=== PATIENT | male | born 1970 | race Two or more races ===

== ENCOUNTER 2021-03-05 16:02 | Inpatient (IN) | payer OTHER ==
[~2021-03-05] VITALS: Ht 190.5 cm; Wt 57.8 kg
[2021-03-05 18:25] LABS: Hematocrit 16.4 % (41.0-53.0); Mean Corpuscular Hgb Conc. 32.8 g/dL (32.0-36.0); Mean Corpuscular Volume 103.6 fL (80.0-100.0); Red Blood Cells 1.59 10^6/uL (4.5-5.90); Red Cell Distribution Width 18.3 % (11.8-14.3)
[2021-03-05 18:28] LABS: White Blood Cell 1.9 10^3/uL (4.4-10.8)
[2021-03-05 18:32] LABS: Anion Gap 9 (5-15); Blood Urea Nitrogen 24 mg/dL (7-18); Calcium 8.5 mg/dL (8.5-10.1); Carbon Dioxide 24 mmol/L (21-32); Chloride 106 mmol/L (98-107); Glucose 96 mg/dL (74-106); Hemoglobin 5.4 g/dL (13.5-17.5); Potassium 4.3 mmol/L (3.5-5.1); Sodium 139 mmol/L (136-145)
[2021-03-05 18:33] LABS: Band Neutrophils % (manual) 0; Basophils % (manual) 0 (0.0-2.0); Blast Cells 0; Eosinophils % (manual) 0 (0-7); Metamyelocytes % 0; Myelocytes % 0; Promyelocytes % 0; Reactive Lymphocytes 0
[2021-03-05 18:42] LABS: Alanine Aminotransferase < 6 U/L (16-61); Alkaline Phosphatase 45 U/L (45-117); Aspartate Aminotransferase 4 U/L (15-37); BUN/Creatinine Ratio 28.9; Bilirubin, Total 0.5 mg/dL (0.2-1.0); GFR African American 126 mL/min; GFR Non-African American 104 mL/min; Total Protein 6.5 g/dL (6.4-8.2)
[2021-03-05 19:09] LABS: Lymphocytes % (manual) 64 (10.0-50.0); Monocytes % (manual) 1 (0-12)
[2021-03-05 22:13] VITALS: BP 111/86
[2021-03-05] MEDS ORDERED: FILGRASTIM (TBO) 300 MCG/0.5 ML SYRG SC ONE (22:15)
[2021-03-05] MEDS ORDERED: NITROGLYCERIN 0.4 MG SL TAB SL PRN (22:15)
[2021-03-05] MEDS ORDERED: ACETAMINOPHEN 325 MG TAB PO PRN (22:15)
[2021-03-05] MEDS ORDERED: MORPHINE SULFATE INJECTION 2 MG/ML SYRG IV PRN (22:15)
[2021-03-05] MEDS ORDERED: TEMAZEPAM 15 MG CAP PO PRN (22:15)
[2021-03-05 22:28] VITALS: BP 117/84
[2021-03-06] VITALS (10 sets, daily range): BP systolic 101–131; BP diastolic 69–95
[2021-03-06] MEDS ORDERED: IODIXANOL 320MG/ML 100ML BTL IV ONE (00:32)
[2021-03-06 01:14] LABS: Lactic Acid w/Reflex 0.7 mmol/L (0.4-2.0)
[2021-03-06] MEDS ORDERED: ASCORBIC ACID 500 MG TAB PO SCH (10:00)
[2021-03-06] MEDS ORDERED: ZINC SULFATE 220mg CAP or TAB PO SCH (10:00)
[2021-03-06 10:22] LABS: Red Blood Cells 2.73 10^6/uL (4.5-5.90); White Blood Cell 2.7 10^3/uL (4.4-10.8)
[2021-03-06 10:25] LABS: Hemoglobin 8.9 g/dL (13.5-17.5); Mean Corpuscular Hemoglobin 32.5 pg (28.0-32.0); Mean Corpuscular Hgb Conc. 34.2 g/dL (32.0-36.0); Mean Corpuscular Volume 95.1 fL (80.0-100.0); Red Cell Distribution Width 17.8 % (11.8-14.3)
[2021-03-06 10:34] LABS: Basophils % (manual) 0 (0.0-2.0); Blast Cells 0; Metamyelocytes % 0; Myelocytes % 0; Promyelocytes % 0; Reactive Lymphocytes 0
[2021-03-06] MEDS ORDERED: HYDR-4833 PO (11:01)
[2021-03-06] MEDS ORDERED: METH2.5T PO (11:01)
[2021-03-06] MEDS ORDERED: AMLO-489 PO (11:01)
[2021-03-06] MEDS ORDERED: CLON0.1T PO (11:01)
[2021-03-06 11:49] LABS: Band Neutrophils % (manual) 1; Eosinophils % (manual) 3 (0-7); Lymphocytes % (manual) 20 (10.0-50.0); Monocytes % (manual) 4 (0-12)
[2021-03-06] MEDS: HYDROcodone-ACET 5/325MG TAB PO PRN ×2 (12:39→17:01)
[2021-03-06 15:29] LABS: Chloride 106 mmol/L (98-107); Potassium 3.8 mmol/L (3.5-5.1); Sodium 139 mmol/L (136-145)
[2021-03-06 15:31] LABS: Anion Gap 9 (5-15); Carbon Dioxide 24 mmol/L (21-32)
[2021-03-06 15:32] LABS: Alkaline Phosphatase 38 U/L (45-117); Aspartate Aminotransferase 5 U/L (15-37); BUN/Creatinine Ratio 36.8; Blood Urea Nitrogen 21 mg/dL (7-18); GFR African American 194 mL/min; GFR Non-African American 160 mL/min; Glucose 92 mg/dL (74-106)
[2021-03-06 15:33] LABS: Albumin 2.4 g/dL (3.4-5.0); Bilirubin, Total 1.8 mg/dL (0.2-1.0); Total Protein 5.5 g/dL (6.4-8.2)
[2021-03-06 15:34] LABS: Alanine Aminotransferase < 6 U/L (16-61)
[2021-03-06] MEDS: DexAMETHasone SOD PHOS 10MG/1ML VIAL INJ IV SCH ×2 (17:00→23:30)
[2021-03-06] MEDS ORDERED: Ensure Enlive Strawberry 8oz Bottle PO SCH (18:00)
[2021-03-06 18:40] LABS: Urine Bacteria NONE SEEN /hpf (None Seen); Urine Blood 3+ /uL (Negative); Urine Budding Yeast OCCASIONAL /hpf (None Seen); Urine Specific Gravity 1.044 (1.001-1.035); Urine WBC 112 /hpf (0 - 3)
[2021-03-06] MEDS: Glucerna Carbsteady SHAKE Vanilla 8oz PO SCH (18:54)
[2021-03-06] MEDS: MORPHINE SULFATE INJECTION 2 MG/ML SYRG IV PRN (19:55)
[2021-03-07 05:00] VITALS: BP 128/91
[2021-03-07] MEDS: DexAMETHasone SOD PHOS 10MG/1ML VIAL INJ IV SCH ×3 (06:10→17:18)
[2021-03-07] MEDS: Glucerna Carbsteady SHAKE Vanilla 8oz PO SCH ×3 (08:16→17:47)
[2021-03-07] MEDS: MORPHINE SULFATE INJECTION 2 MG/ML SYRG IV PRN ×3 (08:22→20:11)
[2021-03-07 08:30] VITALS: BP 118/85
[2021-03-07] MEDS: cefTRIAXone 1GM/50ML D5W 50 ML IV SCH (09:32)
[2021-03-07 10:47] LABS: Mean Corpuscular Hgb Conc. 34.3 g/dL (32.0-36.0)
[2021-03-07 10:51] LABS: Hematocrit 28.9 % (41.0-53.0); Hemoglobin 9.9 g/dL (13.5-17.5); Mean Corpuscular Hemoglobin 32.7 pg (28.0-32.0); Mean Corpuscular Volume 95.2 fL (80.0-100.0); Red Blood Cells 3.04 10^6/uL (4.5-5.90); Red Cell Distribution Width 17.5 % (11.8-14.3); White Blood Cell 5.6 10^3/uL (4.4-10.8)
[2021-03-07 10:54] LABS: Basophils % (manual) 0 (0.0-2.0); Blast Cells 0; Eosinophils % (manual) 0 (0-7); Metamyelocytes % 0; Myelocytes % 0; Promyelocytes % 0; Reactive Lymphocytes 0
[2021-03-07 11:35] LABS: Band Neutrophils % (manual) 8; Lymphocytes % (manual) 9 (10.0-50.0); Monocytes % (manual) 3 (0-12)
[2021-03-07 12:37] VITALS: BP 118/91
[2021-03-07 17:00] VITALS: BP 108/75
[2021-03-07 22:10] VITALS: BP 125/95
[2021-03-08] VITALS (9 sets, daily range): BP systolic 106–136; BP diastolic 77–96
[2021-03-08] MEDS: DexAMETHasone SOD PHOS 10MG/1ML VIAL INJ IV SCH ×4 (00:12→17:58)
[2021-03-08 06:11] LABS: Basophils # (auto) 0 10 ^3/uL (0-0.2); Hemoglobin 7.5 g/dL (13.5-17.5); Monocytes # (auto) 0.1 10 ^3/uL (0-1.3); White Blood Cell 3.7 10^3/uL (4.4-10.8)
[2021-03-08 06:16] LABS: Basophils % (auto) 0.1 % (0.0-2.0); Eosinophils # (auto) 0 10 ^3/uL (0-0.8); Hematocrit 22.2 % (41.0-53.0); Lymphocytes # (auto) 0.8 10 ^3/uL (0.4-5.4); Lymphocytes % (auto) 20.8 % (10.0-50.0); Mean Corpuscular Hemoglobin 32.5 pg (28.0-32.0); Mean Corpuscular Hgb Conc. 33.7 g/dL (32.0-36.0); Mean Corpuscular Volume 96.4 fL (80.0-100.0); Monocytes % (auto) 3.7 % (0.0-12.0); Neutrophils # (auto) 2.8 10 ^3/uL (1.6-8.6); Neutrophils % (auto) 75.4 % (37.0-80.0); Nucleated Red Blood Cells % 0.5 %; Red Cell Distribution Width 17.7 % (11.8-14.3)
[2021-03-08] MEDS: Glucerna Carbsteady SHAKE Vanilla 8oz PO SCH ×3 (08:00→17:58)
[2021-03-08] MEDS: cefTRIAXone 1GM/50ML D5W 50 ML IV SCH (09:00)
[2021-03-08] MEDS: MORPHINE SULFATE INJECTION 2 MG/ML SYRG IV PRN ×2 (11:08→21:13)
[2021-03-09 00:03] VITALS: BP 122/85
[2021-03-09] MEDS: DexAMETHasone SOD PHOS 10MG/1ML VIAL INJ IV SCH ×4 (00:20→17:18)
[2021-03-09 05:00] VITALS: BP 121/88
[2021-03-09 05:22] LABS: Hemoglobin 8.4 g/dL (13.5-17.5); White Blood Cell 4.6 10^3/uL (4.4-10.8)
[2021-03-09 05:25] LABS: Hematocrit 24.3 % (41.0-53.0); Mean Corpuscular Hemoglobin 32.9 pg (28.0-32.0); Mean Corpuscular Hgb Conc. 34.6 g/dL (32.0-36.0); Mean Corpuscular Volume 95.1 fL (80.0-100.0); Red Blood Cells 2.56 10^6/uL (4.5-5.90); Red Cell Distribution Width 17.1 % (11.8-14.3)
[2021-03-09 06:13] LABS: Basophils % (manual) 0 (0.0-2.0); Blast Cells 0; Eosinophils % (manual) 0 (0-7); Metamyelocytes % 0; Myelocytes % 0; Promyelocytes % 0; Reactive Lymphocytes 0
[2021-03-09] MEDS: Glucerna Carbsteady SHAKE Vanilla 8oz PO SCH ×3 (07:53→17:18)
[2021-03-09 08:38] LABS: Band Neutrophils % (manual) 1; Lymphocytes % (manual) 22 (10.0-50.0); Monocytes % (manual) 4 (0-12)
[2021-03-09 09:00] VITALS: BP 117/88
[2021-03-09] MEDS: cefTRIAXone 1GM/50ML D5W 50 ML IV SCH (09:18)
[2021-03-09] MEDS: MORPHINE SULFATE INJECTION 2 MG/ML SYRG IV PRN ×2 (10:55→17:46)
[2021-03-09 13:01] VITALS: BP 120/84
[2021-03-09 16:58] VITALS: BP 112/86
[2021-03-09 22:00] VITALS: BP 115/81
[2021-03-10] MEDS: DexAMETHasone SOD PHOS 10MG/1ML VIAL INJ IV SCH ×5 (00:08→23:47)
[2021-03-10] MEDS: MORPHINE SULFATE INJECTION 2 MG/ML SYRG IV PRN ×4 (00:09→22:36)
[2021-03-10 05:00] VITALS: BP 124/84
[2021-03-10 05:43] LABS: Hemoglobin 7.4 g/dL (13.5-17.5); Red Blood Cells 2.24 10^6/uL (4.5-5.90); White Blood Cell 6.3 10^3/uL (4.4-10.8)
[2021-03-10 05:46] LABS: Hematocrit 21.4 % (41.0-53.0); Mean Corpuscular Hemoglobin 32.8 pg (28.0-32.0); Mean Corpuscular Hgb Conc. 34.5 g/dL (32.0-36.0); Mean Corpuscular Volume 95.2 fL (80.0-100.0); Red Cell Distribution Width 18.1 % (11.8-14.3)
[2021-03-10 05:56] LABS: Basophils % (manual) 0 (0.0-2.0); Blast Cells 0; Eosinophils % (manual) 0 (0-7); Promyelocytes % 0; Reactive Lymphocytes 0
[2021-03-10] MEDS: Glucerna Carbsteady SHAKE Vanilla 8oz PO SCH ×3 (07:31→17:09)
[2021-03-10] MEDS: cefTRIAXone 1GM/50ML D5W 50 ML IV SCH (07:45)
[2021-03-10 09:00] VITALS: BP 139/94
[2021-03-10 09:08] LABS: Band Neutrophils % (manual) 7; Lymphocytes % (manual) 37 (10.0-50.0); Metamyelocytes % 6; Monocytes % (manual) 17 (0-12); Myelocytes % 6
[2021-03-10] MEDS: LACTULOSE 20Gm/30ML SOLN PO PRN ×2 (12:33→19:40)
[2021-03-10 13:00] VITALS: BP 117/92
[2021-03-10 17:00] VITALS: BP 149/95
[2021-03-10 21:36] VITALS: BP 126/91
[2021-03-10] MEDS ORDERED: ONDANSETRON HCL 4 MG/2 ML VIAL IV PRN (22:30)
[2021-03-11 05:02] VITALS: BP 140/91
[2021-03-11 05:25] LABS: Hematocrit 27.2 % (41.0-53.0); Hemoglobin 9.1 g/dL (13.5-17.5); Mean Corpuscular Hemoglobin 32.3 pg (28.0-32.0); Mean Corpuscular Hgb Conc. 33.4 g/dL (32.0-36.0); Mean Corpuscular Volume 96.5 fL (80.0-100.0); Red Blood Cells 2.82 10^6/uL (4.5-5.90); White Blood Cell 16.2 10^3/uL (4.4-10.8)
[2021-03-11 06:15] LABS: Basophils % (manual) 0 (0.0-2.0); Blast Cells 0; Eosinophils % (manual) 0 (0-7); Promyelocytes % 0; Reactive Lymphocytes 0
[2021-03-11] MEDS: DexAMETHasone SOD PHOS 10MG/1ML VIAL INJ IV SCH ×2 (06:37→12:21)
[2021-03-11] MEDS: MORPHINE SULFATE INJECTION 2 MG/ML SYRG IV PRN ×3 (06:39→17:59)
[2021-03-11] MEDS: LACTULOSE 20Gm/30ML SOLN PO PRN (06:56)
[2021-03-11 07:36] LABS: Band Neutrophils % (manual) 8; Lymphocytes % (manual) 28 (10.0-50.0); Metamyelocytes % 10; Monocytes % (manual) 22 (0-12); Myelocytes % 4
[2021-03-11] MEDS: Glucerna Carbsteady SHAKE Vanilla 8oz PO SCH ×3 (08:00→18:30)
[2021-03-11 08:58] VITALS: BP 135/100
[2021-03-11] MEDS: cefTRIAXone 1GM/50ML D5W 50 ML IV SCH (09:00)
[2021-03-11 13:00] VITALS: BP 130/95
[2021-03-11] MEDS ORDERED: FLEET ENEMA(ADULT) 135 ML PR ONE (13:00)
[2021-03-11 17:00] VITALS: BP 143/109
[2021-03-11 20:00] VITALS: BP 123/67
[2021-03-11 22:00] VITALS: BP 127/101
[2021-03-11] MEDS: predniSONE 20 MG TAB PO SCH (22:00)
[2021-03-11] MEDS: LACTULOSE 20Gm/30ML SOLN PO SCH (22:00)
[2021-03-12] MEDS: MORPHINE SULFATE INJECTION 2 MG/ML SYRG IV PRN ×3 (03:09→21:41)
[2021-03-12 05:00] VITALS: BP 109/84
[2021-03-12] MEDS: predniSONE 20 MG TAB PO SCH ×3 (06:00→21:35)
[2021-03-12 06:48] LABS: Hematocrit 27.3 % (41.0-53.0); Hemoglobin 9.2 g/dL (13.5-17.5); Mean Corpuscular Hemoglobin 32.3 pg (28.0-32.0); Mean Corpuscular Hgb Conc. 33.8 g/dL (32.0-36.0); Mean Corpuscular Volume 95.4 fL (80.0-100.0); Red Blood Cells 2.86 10^6/uL (4.5-5.90); Red Cell Distribution Width 18.2 % (11.8-14.3); White Blood Cell 13.6 10^3/uL (4.4-10.8)
[2021-03-12 07:01] LABS: Basophils % (manual) 0 (0.0-2.0); Blast Cells 0; Eosinophils % (manual) 0 (0-7); Promyelocytes % 0; Reactive Lymphocytes 0
[2021-03-12] MEDS: Glucerna Carbsteady SHAKE Vanilla 8oz PO SCH ×3 (08:09→18:30)
[2021-03-12 08:58] LABS: Band Neutrophils % (manual) 5; Lymphocytes % (manual) 18 (10.0-50.0); Monocytes % (manual) 24 (0-12)
[2021-03-12 08:59] LABS: Metamyelocytes % 1; Myelocytes % 2
[2021-03-12] MEDS: ASCORBIC ACID 500 MG TAB PO SCH ×2 (11:20→21:35)
[2021-03-12] MEDS: MULTIPLE VITAMINS W/ MINERALS TAB PO SCH ×2 (11:20→21:35)
[2021-03-12 12:54] VITALS: BP 115/81
[2021-03-12] MEDS ORDERED: PANT40TA2 PO (14:55)
[2021-03-12] MEDS ORDERED: PRED20TA2 PO (14:55)
[2021-03-12 17:18] VITALS: BP 135/94
[2021-03-12] MEDS: LACTULOSE 20Gm/30ML SOLN PO SCH (21:34)
[2021-03-12 22:00] VITALS: BP 125/92
[2021-03-13 05:04] VITALS: BP 132/89
[2021-03-13] MEDS: predniSONE 20 MG TAB PO SCH ×3 (05:33→21:16)
[2021-03-13] MEDS: MORPHINE SULFATE INJECTION 2 MG/ML SYRG IV PRN ×3 (05:33→21:15)
[2021-03-13 06:02] LABS: Hemoglobin 7.9 g/dL (13.5-17.5); Mean Corpuscular Hemoglobin 31.4 pg (28.0-32.0); White Blood Cell 12.4 10^3/uL (4.4-10.8)
[2021-03-13 06:06] LABS: Mean Corpuscular Hgb Conc. 32.7 g/dL (32.0-36.0)
[2021-03-13 06:38] LABS: Basophils % (manual) 0 (0.0-2.0); Blast Cells 0; Eosinophils % (manual) 0 (0-7); Promyelocytes % 0; Reactive Lymphocytes 0
[2021-03-13 07:36] LABS: Band Neutrophils % (manual) 9; Lymphocytes % (manual) 16 (10.0-50.0); Metamyelocytes % 5; Monocytes % (manual) 27 (0-12); Myelocytes % 5
[2021-03-13 07:45] VITALS: BP 145/92
[2021-03-13] MEDS: Glucerna Carbsteady SHAKE Vanilla 8oz PO SCH ×3 (08:21→18:18)
[2021-03-13 09:00] VITALS: BP 145/92
[2021-03-13] MEDS: ASCORBIC ACID 500 MG TAB PO SCH ×2 (09:12→21:17)
[2021-03-13] MEDS: PANTOPRAZOLE 40 MG TAB PO SCH (09:12)
[2021-03-13] MEDS: MULTIPLE VITAMINS W/ MINERALS TAB PO SCH ×2 (09:12→21:16)
[2021-03-13 13:00] VITALS: BP 128/98
[2021-03-13 16:13] LABS: Urine Bacteria FEW /hpf (None Seen); Urine Blood 3+ /uL (Negative); Urine Hyaline Cast FEW /lpf (0 - 2); Urine Mucus FEW (None Seen); Urine Specific Gravity 1.023 (1.001-1.035); Urine WBC <1 /hpf (0 - 3)
[2021-03-13 17:00] VITALS: BP 130/88
[2021-03-13] MEDS: LACTULOSE 20Gm/30ML SOLN PO SCH ×2 (21:15→21:33)
[2021-03-13 21:17] VITALS: BP 119/81
[2021-03-14] MEDS: MORPHINE SULFATE INJECTION 2 MG/ML SYRG IV PRN ×3 (03:51→17:23)
[2021-03-14 05:12] VITALS: BP 133/86
[2021-03-14] MEDS: Glucerna Carbsteady SHAKE Vanilla 8oz PO SCH ×3 (08:03→17:46)
[2021-03-14 09:21] VITALS: BP 143/94
[2021-03-14] MEDS: ASCORBIC ACID 500 MG TAB PO SCH (09:31)
[2021-03-14] MEDS: predniSONE 20 MG TAB PO SCH (09:31)
[2021-03-14] MEDS: MULTIPLE VITAMINS W/ MINERALS TAB PO SCH (09:36)
[2021-03-14] MEDS: PANTOPRAZOLE 40 MG TAB PO SCH (09:36)
[2021-03-14 10:44] LABS: Hemoglobin 8.3 g/dL (13.5-17.5)
[2021-03-14 10:46] LABS: Hematocrit 25.5 % (41.0-53.0); Mean Corpuscular Hemoglobin 31.7 pg (28.0-32.0); Mean Corpuscular Hgb Conc. 32.6 g/dL (32.0-36.0); Mean Corpuscular Volume 97.1 fL (80.0-100.0); Red Blood Cells 2.62 10^6/uL (4.5-5.90); Red Cell Distribution Width 18.8 % (11.8-14.3); White Blood Cell 14.3 10^3/uL (4.4-10.8)
[2021-03-14 10:49] LABS: Basophils % (manual) 0 (0.0-2.0); Blast Cells 0; Eosinophils % (manual) 0 (0-7); Metamyelocytes % 0; Promyelocytes % 0; Reactive Lymphocytes 0
[2021-03-14] MEDS ORDERED: PRED20TA2 PO (11:14)
[2021-03-14] MEDS ORDERED: FERROUS SULFATE 325mg EC TAB PO ONE (11:15)
[2021-03-14] MEDS ORDERED: FER325T PO (11:15)
[2021-03-14 12:21] VITALS: BP 112/82
[2021-03-14 12:43] LABS: Band Neutrophils % (manual) 4; Lymphocytes % (manual) 13 (10.0-50.0); Monocytes % (manual) 8 (0-12); Myelocytes % 2
[2021-03-14] MEDS ORDERED: BISA1TAB6 PO (13:58)
[2021-03-14] MEDS ORDERED: ASCO500T11 PO (13:58)
[2021-03-14] MEDS ORDERED: MULTTAB75 PO (13:58)
[2021-03-14 17:23] VITALS: BP 142/70
[2021-03-15] MEDS ORDERED: FERROUS SULFATE 325mg EC TAB PO SCH (10:00)
== END 2021-03-14 18:30 | disposition home health service (06) | DRG 545 ==
LOC: ER 16:02 → EDBD 16:02 → TELE 22:12 → TELE-CENTR 03-06 09:59 → CENTRAL 03-08 10:43
PROVIDERS: ADMIT Nurse Practitioner; ATTEND Internal Medicine
PROC: 30233N1 Transfusion of Nonautologous Red Blood Cells into Peripheral Vein, Percutaneous Approach (ICD-10-PCS; principal; 2021-03-05)
PROC: 30233R1 Transfusion of Nonautologous Platelets into Peripheral Vein, Percutaneous Approach (ICD-10-PCS; 2021-03-06)
DX: M33.13 Other dermatomyositis without myopathy (principal); E43 Unspecified severe protein-calorie malnutrition; N39.0 Urinary tract infection, site not specified; Z68.1 Body mass index [BMI] 19.9 or less, adult; D61.818 Other pancytopenia; D64.9 Anemia, unspecified; R62.7 Adult failure to thrive; N20.0 Calculus of kidney; Z20.822 Contact with and (suspected) exposure to COVID-19; G89.29 Other chronic pain; K59.00 Constipation, unspecified; Z74.01 Bed confinement status
CPT/HCPCS: 36415; 70450; 71045; 74177; 80053; 81001; 82270; 83010; 83540; 83550; 83605; 83615; 85007; 85025; 85027; 85045; 86304; 86850; 86880; 86900; 86901; 86920; 87086; 87426; 93005; 96372; 97110; 97163; G0378; J0696; J1100; J1447; J2405; Q9967

== ENCOUNTER 2022-01-14 13:26 | Inpatient (IN) | payer OTHER ==
[~2022-01-14] VITALS: Ht 1 cm; Wt 65.0 kg
[~2022-01-14 13:26] MED LIST: AMLO-489 PO; ASCO500T11 PO; BISA1TAB6 PO; CLON0.1T PO; FER325T PO; HYDR-4833 PO; MULTTAB75 PO; PANT40TA2 PO; PRED20TA2 PO
[2022-01-14] MEDS ORDERED: SODIUM CHLORIDE 0.9% 1,000 ML IV ONE ×3 (14:30→19:30)
[2022-01-14] MEDS ORDERED: cefTRIAXone 1GM/50ML D5W 50 ML IV ONE (15:00)
[2022-01-14 15:07] LABS: Basophils # (auto) 0.1 10 ^3/uL (0-0.2); Neutrophils # (auto) 8.9 10 ^3/uL (1.6-8.6); White Blood Cell 11.6 10^3/uL (4.4-10.8)
[2022-01-14 15:09] LABS: Basophils % (auto) 0.4 % (0.0-2.0); Eosinophils # (auto) 0.1 10 ^3/uL (0-0.8); Eosinophils % (auto) 0.5 % (0.0-7.0); Hematocrit 37.7 % (41.0-53.0); Hemoglobin 11.4 g/dL (13.5-17.5); Lymphocytes % (auto) 17.4 % (10.0-50.0); Mean Corpuscular Hemoglobin 28.9 pg (28.0-32.0); Mean Corpuscular Hgb Conc. 30.2 g/dL (32.0-36.0); Mean Corpuscular Volume 95.8 fL (80.0-100.0); Monocytes # (auto) 0.6 10 ^3/uL (0-1.3); Monocytes % (auto) 4.9 % (0.0-12.0); Neutrophils % (auto) 76.8 % (37.0-80.0); Nucleated Red Blood Cells % 0.2 %; Red Blood Cells 3.94 10^6/uL (4.5-5.90); Red Cell Distribution Width 16.1 % (11.8-14.3)
[2022-01-14 15:24] LABS: Albumin 2.8 g/dL (3.4-5.0); Calcium 8.5 mg/dL (8.5-10.1); Potassium 3.8 mmol/L (3.5-5.1)
[2022-01-14 15:28] LABS: BUN/Creatinine Ratio 13.5; Bilirubin, Total 0.6 mg/dL (0.2-1.0); Total Protein 6.1 g/dL (6.4-8.2)
[2022-01-14] MEDS ORDERED: SODIUM CHLORIDE 0.9% 1,650 ML IV ONE (15:45)
[2022-01-14] MEDS ORDERED: AZITHROMYCIN 500MG/ 250ML 250 ML IV ONE (15:45)
[2022-01-14] MEDS ORDERED: IOHEXOL 350 MG/ML 100ML IJ ONE (16:47)
[2022-01-14] MEDS ORDERED: ONDANSETRON HCL 4 MG/2 ML VIAL IV PRN (19:15)
[2022-01-14] MEDS ORDERED: MORPHINE SULFATE INJ 2 MG/ml SYRG IV PRN (19:15)
[2022-01-14] MEDS ORDERED: NITROGLYCERIN 0.4 MG SL TAB SL PRN (19:15)
[2022-01-14] MEDS ORDERED: SODIUM BICARBONATE 8.4 % INJ 50ML VIAL IV ONE (19:30)
[2022-01-14 20:10] LABS: Cholesterol 284 mg/dL (< 200); HDL Cholesterol 115 mg/dL (40-59); Triglycerides 408 mg/dL (< 150)
[2022-01-14] MEDS: MORPHINE SULFATE INJ 2 MG/ml SYRG IV PRN (20:13)
[2022-01-14 20:28] LABS: Urine Bacteria NONE SEEN /hpf (None Seen); Urine Blood 1+ /uL (Negative); Urine Hyaline Cast FEW /lpf (0 - 2); Urine Specific Gravity 1.027 (1.001-1.035); Urine WBC 25 /hpf (0 - 3)
[2022-01-14] MEDS: CLINDAMYCIN 600MG IV 50 ML IV SCH (22:09)
[2022-01-15 00:15] LABS: INR 0.95 (0.9-1.15)
[2022-01-15] MEDS: MORPHINE SULFATE INJ 2 MG/ml SYRG IV PRN ×2 (00:24→10:25)
[2022-01-15] MEDS: CLINDAMYCIN 600MG IV 50 ML IV SCH ×3 (05:45→21:22)
[2022-01-15 06:22] LABS: Basophils # (auto) 0 10 ^3/uL (0-0.2); Eosinophils # (auto) 0 10 ^3/uL (0-0.8); Hematocrit 31.3 % (41.0-53.0); Hemoglobin 9.5 g/dL (13.5-17.5); Mean Corpuscular Hemoglobin 29.9 pg (28.0-32.0); Mean Corpuscular Hgb Conc. 30.3 g/dL (32.0-36.0); Red Cell Distribution Width 16.7 % (11.8-14.3)
[2022-01-15 06:24] LABS: Basophils % (auto) 0.5 % (0.0-2.0); Eosinophils % (auto) 0.1 % (0.0-7.0); Lymphocytes % (auto) 10.4 % (10.0-50.0); Mean Corpuscular Volume 98.9 fL (80.0-100.0); Monocytes # (auto) 0.4 10 ^3/uL (0-1.3); Monocytes % (auto) 4.4 % (0.0-12.0); Neutrophils # (auto) 8.2 10 ^3/uL (1.6-8.6); Neutrophils % (auto) 84.6 % (37.0-80.0); Red Blood Cells 3.16 10^6/uL (4.5-5.90); White Blood Cell 9.7 10^3/uL (4.4-10.8)
[2022-01-15 06:29] LABS: Albumin 2.4 g/dL (3.4-5.0); Calcium 7.2 mg/dL (8.5-10.1)
[2022-01-15 06:33] LABS: BUN/Creatinine Ratio 16.7; Bilirubin, Total 0.4 mg/dL (0.2-1.0); Total Protein 5.1 g/dL (6.4-8.2)
[2022-01-15] MEDS ORDERED: SODIUM BICARBONATE 8.4 % INJ 50ML VIAL IV ONE ×2 (06:45→10:00)
[2022-01-15] MEDS: PANTOPRAZOLE 40 MG/10 ML VIAL INJ IV SCH (09:04)
[2022-01-15] MEDS: ENOXAPARIN SOD 40 MG/0.4 ML SYRINGE SC SCH (09:04)
[2022-01-15] MEDS: cefTRIAXone 1GM/50ML D5W 50 ML IV SCH (09:05)
[2022-01-15] MEDS ORDERED: SODIUM BICARBONATE 50ML VIAL 150 ML in D5W 5% 1,000 ML IV SCH (10:15)
[2022-01-15] MEDS ORDERED: THIAMINE 100mg/ml INJ (200mg/2ml VIAL) IV ONE (11:30)
[2022-01-15 11:41] LABS: Magnesium 1.4 mg/dL (1.6-2.6); Phosphorus 3.5 mg/dL (2.5-4.90)
[2022-01-15 14:48] LABS: BUN/Creatinine Ratio 18.2; Calcium 7.4 mg/dL (8.5-10.1); Potassium 3.5 mmol/L (3.5-5.1)
[2022-01-15] MEDS ORDERED: DEXTROSE (50%) 50ML SYRG IV ONE (15:15)
[2022-01-15] MEDS ORDERED: DEXTROSE (50%) 50ML SYRG IV PRN (15:30)
[2022-01-15] MEDS: POTASSIUM CHL 20MEQ/100ML 100 ML IV SCH ×2 (16:08→17:44)
[2022-01-15] MEDS: SODIUM BICARBONATE 50ML VIAL 150 ML in D5W 5% 1,000 ML IV SCH (16:59)
[2022-01-15] MEDS: MAGNESIUM SULFATE 1GM/100ML 100 ML IV SCH ×2 (17:00→18:52)
[2022-01-15] MEDS: InsuLIN REG 1unit/0.01ml Soln (100units/ml) SC SCH (17:44)
[2022-01-15] MEDS: ACCU-CHEK COMFORT CURVE STRIP VI SCH (17:44)
[2022-01-15] MEDS ORDERED: MAGNESIUM SULFATE 1GM/100ML 100 ML IV SCH (21:10)
[2022-01-15 21:57] VITALS: BP 95/64
[2022-01-16] MEDS: ACCU-CHEK COMFORT CURVE STRIP VI SCH ×4 (00:05→18:15)
[2022-01-16 05:19] VITALS: BP 106/65
[2022-01-16] MEDS: InsuLIN REG 1unit/0.01ml Soln (100units/ml) SC SCH ×5 (06:00→18:18)
[2022-01-16] MEDS: CLINDAMYCIN 600MG IV 50 ML IV SCH ×2 (06:20→14:38)
[2022-01-16] MEDS: MORPHINE SULFATE INJ 2 MG/ml SYRG IV PRN ×2 (06:24→22:11)
[2022-01-16] MEDS: SODIUM BICARBONATE 50ML VIAL 150 ML in D5W 5% 1,000 ML IV SCH (06:25)
[2022-01-16 07:18] LABS: Basophils # (auto) 0 10 ^3/uL (0-0.2); Basophils % (auto) 0.1 % (0.0-2.0); Eosinophils # (auto) 0 10 ^3/uL (0-0.8); Eosinophils % (auto) 0.2 % (0.0-7.0); Hematocrit 26.2 % (41.0-53.0); Hemoglobin 8.6 g/dL (13.5-17.5); Lymphocytes # (auto) 0.5 10 ^3/uL (0.4-5.4); Lymphocytes % (auto) 15.2 % (10.0-50.0); Mean Corpuscular Hemoglobin 29.1 pg (28.0-32.0); Mean Corpuscular Hgb Conc. 32.7 g/dL (32.0-36.0); Monocytes # (auto) 0.2 10 ^3/uL (0-1.3); Monocytes % (auto) 6.7 % (0.0-12.0); Neutrophils # (auto) 2.4 10 ^3/uL (1.6-8.6); Neutrophils % (auto) 77.8 % (37.0-80.0); Nucleated Red Blood Cells % 0.1 %; Red Blood Cells 2.94 10^6/uL (4.5-5.90); Red Cell Distribution Width 15.5 % (11.8-14.3)
[2022-01-16 08:18] LABS: Albumin 1.9 g/dL (3.4-5.0); BUN/Creatinine Ratio 10.2; Bilirubin, Total 0.3 mg/dL (0.2-1.0); Calcium 6.9 mg/dL (8.5-10.1); Total Protein 4.2 g/dL (6.4-8.2)
[2022-01-16 08:20] VITALS: BP 103/63
[2022-01-16 08:23] LABS: Potassium 2.5 mmol/L (3.5-5.1)
[2022-01-16 09:00] VITALS: BP 103/63
[2022-01-16] MEDS ORDERED: POTASSIUM CHL 20 Meq TABLET PO ONE (09:15)
[2022-01-16] MEDS ORDERED: POTASSIUM EFFERVESENT TAB 25 MEQ PO ONE ×2 (09:15→10:15)
[2022-01-16] MEDS: ENOXAPARIN SOD 40 MG/0.4 ML SYRINGE SC SCH (10:04)
[2022-01-16] MEDS: predniSONE 5 MG TAB PO SCH (10:04)
[2022-01-16] MEDS: THIAMINE 100mg/ml INJ (200mg/2ml VIAL) IV SCH (10:04)
[2022-01-16] MEDS: cefTRIAXone 1GM/50ML D5W 50 ML IV SCH (10:04)
[2022-01-16] MEDS: PANTOPRAZOLE 40 MG/10 ML VIAL INJ IV SCH (10:04)
[2022-01-16] MEDS: MYCOPHENOLATE 500 MG TAB PO SCH (10:05)
[2022-01-16] MEDS: FOLIC ACID 1 MG, MULTIPLE VITAMIN 10 ML, MAGNESIUM SULF SDV 50% 8 MEQ, THIAMINE INJ 100... INJ SCH ×5 (12:36)
[2022-01-16 13:00] VITALS: BP 106/63
[2022-01-16] MEDS ORDERED: MYCO500T PO (16:57)
[2022-01-16 17:00] VITALS: BP 96/67
[2022-01-16 22:00] VITALS: BP 103/74
[2022-01-16 22:53] LABS: Potassium 3.9 mmol/L (3.5-5.1)
[2022-01-16 22:56] LABS: BUN/Creatinine Ratio 4.9
[2022-01-17 05:00] VITALS: BP 116/77
[2022-01-17] MEDS: InsuLIN REG 1unit/0.01ml Soln (100units/ml) SC SCH ×3 (06:00→12:00)
[2022-01-17] MEDS: ACCU-CHEK COMFORT CURVE STRIP VI SCH ×3 (06:03→12:22)
[2022-01-17] MEDS: MORPHINE SULFATE INJ 2 MG/ml SYRG IV PRN (06:06)
[2022-01-17 06:11] LABS: Calcium 6.9 mg/dL (8.5-10.1)
[2022-01-17 06:15] LABS: Albumin 1.8 g/dL (3.4-5.0); BUN/Creatinine Ratio 6.9
[2022-01-17 06:17] LABS: Bilirubin, Total 0.2 mg/dL (0.2-1.0)
[2022-01-17 08:14] VITALS: BP 126/88
[2022-01-17 08:20] VITALS: BP 126/88
[2022-01-17] MEDS: PANTOPRAZOLE 40 MG/10 ML VIAL INJ IV SCH (10:55)
[2022-01-17] MEDS: predniSONE 5 MG TAB PO SCH (10:55)
[2022-01-17] MEDS: THIAMINE 100mg/ml INJ (200mg/2ml VIAL) IV SCH (10:55)
[2022-01-17] MEDS: ENOXAPARIN SOD 40 MG/0.4 ML SYRINGE SC SCH (10:56)
[2022-01-17] MEDS: MYCOPHENOLATE 500 MG TAB PO SCH (10:56)
[2022-01-17] MEDS ORDERED: POTASSIUM CHL 20 Meq TABLET PO ONE (11:15)
[2022-01-17] MEDS ORDERED: POTASSIUM EFFERVESENT TAB 25 MEQ PO ONE (11:30)
[2022-01-17] MEDS: FOLIC ACID 1 MG, MULTIPLE VITAMIN 10 ML, MAGNESIUM SULF SDV 50% 8 MEQ, THIAMINE INJ 100... INJ SCH ×5 (12:00)
[2022-01-17 13:00] VITALS: BP 116/77
[2022-01-17] MEDS ORDERED: THIA100T10 PO (13:02)
[2022-01-17 13:36] VITALS: BP 116/77
== END 2022-01-17 17:17 | disposition home or self-care (01) | DRG 871 ==
LOC: ER 13:26 → EDBD 13:26 → TELE 19:18 → TELE-WESTW 01-15 14:25
PROVIDERS: ADMIT Registered Nurse; ATTEND Internal Medicine Nephrology
DX: A41.9 Sepsis, unspecified organism (principal); G93.41 Metabolic encephalopathy; E44.0 Moderate protein-calorie malnutrition; M33.13 Other dermatomyositis without myopathy; E87.2 Acidosis; E87.4 Mixed disorder of acid-base balance; Z68.44 Body mass index [BMI] 60.0-69.9, adult; D84.9 Immunodeficiency, unspecified; M86.8X7 Other osteomyelitis, ankle and foot; I10 Essential (primary) hypertension; Z20.822 Contact with and (suspected) exposure to COVID-19; K52.9 Noninfective gastroenteritis and colitis, unspecified; N20.0 Calculus of kidney; L97.529 Non-pressure chronic ulcer of other part of left foot with unspecified severity; L97.509 Non-pressure chronic ulcer of other part of unspecified foot with unspecified severity; L03.032 Cellulitis of left toe; Z74.01 Bed confinement status; Z99.3 Dependence on wheelchair; Z87.891 Personal history of nicotine dependence
CPT/HCPCS: 36415; 36600; 70450; 71045; 71260; 73700; 74177; 80048; 80053; 80061; 80320; 81001; 82010; 82805; 82962; 83036; 83605; 83735; 83880; 83930; 84100; 84484; 85025; 85610; 87040; 87077; 87186; 87205; 92610; 93005; 93306; 96361; 96365; C9113; G0378; J0696; J1815; J2405; J3480; J3490; J7517